=== PATIENT | female | born 1960 | race Caucasian/White ===

== ENCOUNTER 2017-03-23 10:45 | Emergency (ER) | payer OTHER ==
[~2017-03-23] VITALS: Ht 160 cm; Wt 60.0 kg
[~2017-03-23 10:45] MED LIST: CYAN1000P IM; FERR1TAB22 PO; OMEP20CA5 PO; RANI150C PO
[2017-03-23 10:48] VITALS: BP 172/75; PULSE 66; RESP 14; TEMP 98.1; O2SAT 98
[2017-03-23 11:25] LABS: AUTOMATED NEUTROPHIL # 3.4 TH/MM3 (1.8-7.7); BASOPHIL # 0.1 TH/MM3 (0-0.2); BASOPHIL % 0.8 % (0.0-2.0); EOSINOPHIL # 0.4 TH/MM3 (0-0.4); EOSINOPHIL % 5.8 % (0.0-4.0); HEMATOCRIT 40.3 % (35.0-46.0); HEMO FLAGS DIFF FINAL; LYMPHOCYTE # 2.3 TH/MM3 (1.0-4.8); MEAN CELL VOLUME 85.5 FL (80.0-100.0); MEAN CORPUSCULAR HGB CONC 32.7 % (32.0-36.0); MONO % 7.6 % (0.0-8.0); NEUT % 51.8 % (16.0-70.0); PLATELET COUNT 242 TH/MM3 (150-450); RED BLOOD COUNT 4.72 MIL/MM3 (4.00-5.30); RED CELL DISTRIBUTION WIDTH 13.1 % (11.6-17.2); WHITE BLOOD COUNT 6.7 TH/MM3 (4.0-11.0)
--- NOTE | 2017-03-23 11:26 | RADRPT ---
EXAM DATE/TIME: 03/23/2017 11:08 [facility] COMPARISON: No previous studies available for comparison. INDICATIONS : Burning in chest since last night, pain in middle of back, no shortness of breath MEDICAL HISTORY : None. SURGICAL HISTORY : None. ENCOUNTER: Initial ACUITY: 1 day PAIN SCORE: 6/10 LOCATION: Bilateral chest FINDINGS: PA and lateral views of the chest demonstrate the lungs to be symmetrically aerated without evidence of mass, infiltrate or effusion. The cardiomediastinal contours are unremarkable. Osseous structure s are intact. CONCLUSION: No acute disease. Gadiel Yan MD FACR on March 23, 2017 at 11:24 Board Certified Radiologist. This report was verified electronically.
[2017-03-23 11:39] LABS: ANION GAP 8 MEQ/L (5-15); BICARBONATE 29.1 MEQ/L (21.0-32.0); BLOOD UREA NITROGEN 11 MG/DL (7-18); CHLORIDE 103 MEQ/L (98-107); GLOMERULAR FILTRATION RATE 81 ML/MIN (>89); SODIUM (NA) 140 MEQ/L (136-145)
[2017-03-23 11:43] LABS: CREATINE KINASE 243 U/L (26-192)
--- NOTE | 2017-03-23 11:44 | EKG ---
Date Performed: 03/23/2017 Time Performed: 11:01:27 PTAGE: 57 years EKG: Sinus rhythm NORMAL ECG PREVIOUS TRACING : 08/17/2015 06.58 No significant change from previous tracing noted. DOCTOR: Chandler Mujica Interpretating Date/Time 03/23/2017 11:42:57
[2017-03-23 11:55] LABS: CKMB 2.4 NG/ML (0.5-3.6)
--- NOTE | 2017-03-23 12:57 | PD ---
HPI Chief Complaint: Chest Pain Time Seen by Provider: 12:28 Travel History International Travel<30 days: No Contact w/Intl Traveler<30days: No Traveled to known affect area: No History of Present Illness HPI 57-year-old female that presents to the ED for evaluation of chest pain. Per patient she's had burning sensation in her chest since 8:00 last night. She has a history of peptic ulcer disease since age 17 but denies any abdominal pain. Per patient she contact her PCP today who told her to come here to get evaluated for possible heart issues. She denies any shortness of breath. Per patient the pain is burning like almost like heartburn. She denies any shortness of breath. No history of heart disease in herself or anybody in the family. She denies any history of high cholesterol, diabetes, hypertension, smoking or alcohol abuse. She states that for the most part she is very healthy and exercises every day. She denies taking any aspirin or blood thinners. She states that she has not had any recent travel or takes hormones. She denies any bowel movement or urinary issues. No nausea or vomiting. She states that the discomfort is 7 out of 10 and is more burning. No pressure. Does not radiate. PFSH Past Medical History Cancer: No Cardiovascular Problems: No Diabetes: No Diminished Hearing: No Endocrine: No GERD: Yes Glaucoma: No Genitourinary: No Hepatitis: No Hiatal Hernia: No Hypertension: No Immune Disorder: No Musculoskeletal: Yes (RIGHT MIDDLE FINGER) Neurologic: No Psychiatric: No Reproductive: No Respiratory: No Thyroid Disease: No ?: Not Past Surgical History Abdominal Surgery: Yes (PARTIAL GASTRECTOMY-COLON RESECTION, LAP LEA, UMBILICAL HERNIA) AICD: No Body Medical Devices: NONE Cardiac Surgery: No Ear Surgery: No Endocrine Surgery: No Eye Surgery: No Genitourinary Surgery: No Gynecologic Surgery: Yes (LAPAROSCOPIC SX-ABLATION(ENDOMETRIOSIS)) Joint Replacement: No Oral Surgery: No Pacemaker: No Thoracic Surgery: No Other Surgery: Yes Social History Alcohol Use: No Tobacco Use: No Substance Use: No Allergies-Medications (Allergen,Severity, Reaction): Coded Allergies: nitrofurantoin (Unverified Allergy, Severe, HIVES,FEVER,SHAKING, 12/30/16) Reported Meds & Prescriptions Reported Meds & Active Scripts Active Reported Slow-Release Iron (Ferrous Sulfate Dried) 45 Mg Tab 135 Mg PO DAILY Zantac (Ranitidine HCl) 150 Mg Cap 150 PO DAILY Prilosec 20 mg (Omeprazole) 20 Mg Capcr 20 Mg PO DAILY Vitamin B12 (Cyanocobalamin) 1,000 Mcg/Ml Inj 1,000 Mcg IM MONTHLY Review of Systems Except as stated in HPI: all other systems reviewed are Neg Physical Exam Narrative GENERAL: SKIN: Warm and dry. HEAD: Atraumatic. Normocephalic. EYES: Pupils equal and round. No scleral icterus. No injection or drainage. ENT: No nasal bleeding or discharge. Mucous membranes pink and moist. Tongue is midline. No uvula deviation. NECK: Trachea midline. No JVD. CARDIOVASCULAR: Regular rate and rhythm. No murmurs, S3, S4. RESPIRATORY: No accessory muscle use. Clear to auscultation. Breath sounds equal bilaterally. GASTROINTESTINAL: Abdomen soft, non-tender, nondistended. Hepatic and splenic margins not palpable. MUSCULOSKELETAL: Extremities without clubbing, cyanosis, or edema. No obvious deformities. Full range of motion of the upper and lower extremities bilaterally. 2+ pulses bilaterally. NEUROLOGICAL: Awake and alert. No obvious cranial nerve deficits. Motor grossly within normal limits. Five out of 5 muscle strength in the arms and legs. Normal speech. PSYCHIATRIC: Appropriate mood and affect; insight and judgment normal. Data Data Last Documented VS Vital Signs Date Time Temp Pulse Resp B/P (MAP) Pulse Ox O2 Delivery O2 Flow Rate FiO2 03/23/17 10:48 98.1 66 14 172/75 (107) 98 Orders Orders Electrocardiogram (03/23/17 10:55) Complete Blood Count With Diff (03/23/17 10:55) Basic Metabolic Panel (Bmp) (03/23/17 10:55) Ckmb (Isoenzyme) Profile (03/23/17 10:55) Troponin I (03/23/17 10:55) Iv Access Insert/Monitor (03/23/17 10:55) Ecg Monitoring (03/23/17 10:55) Oxygen Administration (03/23/17 10:55) Oximetry (03/23/17 10:55) Chest, Pa & Lat (03/23/17 10:55) CKMB (03/23/17 11:02) CKMB% (03/23/17 11:02) Aspirin (Aspirin) (03/23/17 13:00) Ed Discharge Order (03/23/17 12:51) Labs Laboratory Tests Test 03/23/17 11:02 White Blood Count 6.7 TH/MM3 Red Blood Count 4.72 MIL/MM3 Hemoglobin 13.2 GM/DL Hematocrit 40.3 % Mean Corpuscular Volume 85.5 FL Mean Corpuscular Hemoglobin 28.0 PG Mean Corpuscular Hemoglobin Concent 32.7 % Red Cell Distribution Width 13.1 % Platelet Count 242 TH/MM3 Mean Platelet Volume 8.1 FL Neutrophils (%) (Auto) 51.8 % Lymphocytes (%) (Auto) 34.0 % Monocytes (%) (Auto) 7.6 % Eosinophils (%) (Auto) 5.8 % Basophils (%) (Auto) 0.8 % Neutrophils # (Auto) 3.4 TH/MM3 Lymphocytes # (Auto) 2.3 TH/MM3 Monocytes # (Auto) 0.5 TH/MM3 Eosinophils # (Auto) 0.4 TH/MM3 Basophils # (Auto) 0.1 TH/MM3 CBC Comment DIFF FINAL Differential Comment Blood Urea Nitrogen 11 MG/DL Creatinine 0.74 MG/DL Random Glucose 90 MG/DL Calcium Level 9.0 MG/DL Sodium Level 140 MEQ/L Potassium Level 4.0 MEQ/L Chloride Level 103 MEQ/L Carbon Dioxide Level 29.1 MEQ/L Anion Gap 8 MEQ/L Estimat Glomerular Filtration Rate 81 ML/MIN Total Creatine Kinase 243 U/L Creatine Kinase MB 2.4 NG/ML Creatine Kinase MB % 1.0 % Troponin I LESS THAN 0.02 NG/ML MDM Medical Decision Making Medical Screen Exam Complete: Yes Emergency Medical Condition: Yes Medical Record Reviewed: Yes Interpretation(s) CBC & BMP Diagram 03/23/17 11:02 Calcium Level 9.0 Troponin and CK-MB negative. EKG shows sinus rhythm with no sign of acute ischemia or arrhythmia read by me and attending. Last Impressions Chest X-Ray 03/23/17 1055 Signed Impressions: Service Date/Time: Thursday, March 23, 2017 11:08 - CONCLUSION: No acute disease. Gadiel Yan MD FACR Differential Diagnosis ACS versus chest pain versus a typical chest pain versus peptic ulcer disease versus GERD Narrative Course 66-year-old female that presents to the ED for evaluation of chest pain. Patient was properly examined and was found to have signs and symptoms of unclear etiology. Patient only has one risk factor towards her which is her age she is about 56. She has no risk factor otherwise. Denies any other medical issues. Labs and imaging were done at triage and showed no sign of acute disease. Troponin was negative. EKG show no sign of ischemic changes. At this time I did offer patient admission to the chest pain center. Did recommend that secondary to her age and she never having a stress test in the past. She understands reasons to having the stress test to better assess for cardiac disease. She declined this. She understands that would of this testing she can have severe illness including . She agrees with this. She will require follow-up with PCP.AMA: The risks of leaving against medical advice without further evaluation treatment were discussed with the patient. These risks include cardiac dysfunction, cardiac dysrhythmia, possible heart attack, possible stroke or . The patient indicated understanding of these risks and appeared to have the capacity to make this decision. She was told to follow with PCP these week. See ED worsening symptoms. Take a baby aspirin every day. Diagnosis Primary Impression: Atypical chest pain Patient Instructions: General Instructions Additional Instructions: Follow-up with PCP these week. See ED worsening symptoms. Take an aspirin every day. Med/Other Pt SpecificInfo: Prescription(s) given Disposition: 01 DISCHARGE HOME Condition: Stable Erik Posada Mar 23, 2017 12:56
[2017-03-23] MEDS ORDERED: ASPIRIN 325 MG TAB PO ONE (13:00)
== END 2017-03-23 13:15 | disposition home or self-care (01) ==
LOC: NEPC 10:45
DX: R07.89 Other chest pain (principal); K21.9 Gastro-esophageal reflux disease without esophagitis
CPT/HCPCS: 71020; 80048; 82550; 82552; 84484; 85025; 93005

== ENCOUNTER 2017-06-07 18:56 | Observation (INO) | payer OTHER ==
[2017-06-07] VITALS (8 sets, daily range): BP systolic 82–96; BP diastolic 43–62; PULSE 66–93; RESP 16–18; TEMP 97.8–98.8; O2SAT 100
[2017-06-07] MEDS ORDERED: SODIUM CHLOR 0.9% 1000 ML INJ 1,000 ML IV ONE (19:29)
[2017-06-07] MEDS ORDERED: ONDANSETRON HCL 4 MG/2 ML VIAL IVP ONE (19:30)
[2017-06-07] MEDS ORDERED: SODIUM CHLORIDE 0.9% FLUSH 10 ML FLUSH IVF PRN (19:30)
[2017-06-07] MEDS ORDERED: SODIUM CHLORID 0.9% 500 ML INJ 500 ML IV ONE ×3 (19:30→23:30)
--- NOTE | 2017-06-07 19:40 | PD ---
HPI Chief Complaint: GI Complaint Time Seen by Provider: 19:29 Travel History International Travel<30 days: No Contact w/Intl Traveler<30days: No Traveled to known affect area: No History of Present Illness HPI 57-year-old female presents to the emergency department by private transportation the care of her significant other and niece after a witnessed syncopal episode while having a diarrheal stool. Patient awakened this morning feeling well and around 9 AM started noticing some abdominal cramping diarrhea and subsequent nausea and vomiting. Patient has had at least 7 episodes of bilious emesis without hematemesis or coffee-ground emesis reported. Patient has had hourly or greater watery diarrhea stool since 9 AM. Patient had crampy abdominal pain. Patient's also had fever and chills. No report of respiratory illness cough congestion shortness of breath or chest pain. No reported dysuria frequency or urgency. Patient has been attempting to take Pedialyte without success today. Patient was in the bathroom and feeling very weak and reportedly fell off the toilet and had a period of loss of time for suspected fainting spell syncopal episode with loss of consciousness. He states that she was called by the patient to the bathroom where she found her on the floor and then assisted her back to the commode and while having a diarrheal stool had another episode of syncope. The patient subsequently came to spontaneously. No report of seizure activity. No report of known head injury. Patient does not report any head pain scalp pain neck pain back pain rib pain and pelvis pain or extremity injury. Family members were attempting to give patient Antonio but decided to bring her to the emergency room instead. Patient has history of peptic ulcer disease with partial gastrectomy in the past. 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 Almeida is her primary care provider. Patient does not take any NSAIDs or blood thinning agents. Patient denies any dietary indiscretion well water ingestion or foreign travel. No other family members with similar symptoms. Patient also status post umbilical herniorrhaphy cholecystectomy and uterine ablation for endometriosis. Patient was evaluated in March 2017 for chest pain and workup at that time revealed no acute process in the emergency department and patient declined observation admission for further evaluation. Patient denies personal history of known CAD hypertension dyslipidemia diabetes tobaccoism or premature onset heart disease. Again patient denies any chest pain, shortness of breath, pleuritic chest pain, hemoptysis, long distance travel, protracted bedrest, or surgical procedure, or clotting disorder. Patient states she's had no respiratory symptoms no cough no congestion no myalgias nor arthralgias so nonproductive cough no productive cough no wheezing no pleurisy no rib pain no chest wall pain and no swelling of the extremities and no personal history or family history of clotting disorder or connective tissue disorder. PFSH Past Medical History Narrative Medical Peptic ulcer disease, partial gastrectomy/partial colectomy, exploratory laparotomy, umbilical herniorrhaphy, uterine ablation, endometriosis, no tobacco use, nursing notes reviewed Cancer: No Cardiovascular Problems: No Diabetes: No Diminished Hearing: No Endocrine: No Gastrointestinal Disorders: Yes (GERD, HX BLEEDING ULCER REQUIRING SURGERY) GERD: Yes Glaucoma: No Genitourinary: No Hepatitis: No Hiatal Hernia: No Hypertension: No Immune Disorder: No Musculoskeletal: Yes (RIGHT MIDDLE FINGER) Neurologic: No Psychiatric: No Reproductive: No Respiratory: No Thyroid Disease: No ?: Not Past Surgical History Abdominal Surgery: Yes (PARTIAL GASTRECTOMY-COLON RESECTION, LAP LEA, UMBILICAL HERNIA) AICD: No Body Medical Devices: NONE Cardiac Surgery: No Ear Surgery: No Endocrine Surgery: No Eye Surgery: No Genitourinary Surgery: No Gynecologic Surgery: Yes (LAPAROSCOPIC SX-ABLATION(ENDOMETRIOSIS)) Joint Replacement: No Neurologic Surgery: No Oral Surgery: No Pacemaker: No Thoracic Surgery: No Other Surgery: Yes Social History Alcohol Use: No Tobacco Use: No Substance Use: No Allergies-Medications (Allergen,Severity, Reaction): Coded Allergies: nitrofurantoin (Verified Allergy, Severe, HIVES,FEVER,SHAKING, 06/07/17) Reported Meds & Prescriptions Reported Meds & Active Scripts Active Narrative Medication Occasional Carafate use Review of Systems Except as stated in HPI: all other systems reviewed are Neg General / Constitutional: Positive: Fever, Chills HENT: No: Sore Throat, Congestion Cardiovascular: No: Chest Pain or Discomfort Respiratory: No: Shortness of Breath Gastrointestinal: Positive: Nausea, Vomiting, Diarrhea, Abdominal Pain, No: Hematemesis, Hematochezia, Loss of Appetite Genitourinary: No: Urgency, Frequency, Dysuria Musculoskeletal: Positive: Myalgias, Arthralgias Skin: No Rash Neurologic: Positive: Weakness, Dizziness, Syncope, No: Focal Abnormalities, Coordination Problem Psychiatric: No: Anxiety Endocrine: No: Heat Intolerance Hematologic/Lymphatic: No: Easy Bruising Physical Exam Narrative GENERAL: Well-developed thin female appears mildly ill in no acute respiratory distress; GCS 15 SKIN: Warm and dry. HEAD: Atraumatic. Normocephalic. EYES: Pupils equal and round. No scleral icterus. No injection or drainage. ENT: No nasal bleeding or discharge. Mucous membranes pink and moist. NECK: Trachea midline. No JVD. No midline tenderness to direct palpation along the cervical spine no bony step-off. CARDIOVASCULAR: Regular rate and rhythm. RESPIRATORY: No accessory muscle use. Clear to auscultation. Breath sounds equal bilaterally. GASTROINTESTINAL: Abdomen soft, non-tender, nondistended. Hepatic and splenic margins not palpable. MUSCULOSKELETAL: Extremities without clubbing, cyanosis, or edema. No obvious deformities. NEUROLOGICAL: Awake and alert. GCS 15. No obvious cranial nerve deficits. Motor grossly within normal limits. Five out of 5 muscle strength in the arms and legs. Normal speech. PSYCHIATRIC: Appropriate mood and affect; insight and judgment normal. Data Data Last Documented VS Vital Signs Date Time Temp Pulse Resp B/P (MAP) Pulse Ox O2 Delivery O2 Flow Rate FiO2 06/07/17 21:55 78 16 82/43 (56) 100 06/07/17 20:51 Room Air 06/07/17 20:20 98.8 Orders Orders Electrocardiogram (06/07/17 19:29) Complete Blood Count With Diff (06/07/17 19:29) Comprehensive Metabolic Panel (06/07/17 19:29) Magnesium (Mg) (06/07/17 19:29) Ckmb (Isoenzyme) Profile (06/07/17 19:29) Troponin I (06/07/17 19:29) Act Partial Throm Time (Ptt) (06/07/17 19:29) Prothrombin Time / Inr (Pt) (06/07/17 19:29) Urinalysis - C+S If Indicated (06/07/17 19:29) Chest, Single Ap (06/07/17 19:29) Ct Brain W/O Iv Contrast(Rout) (06/07/17 19:29) Blood Glucose (06/07/17 19:29) Ecg Monitoring (06/07/17 19:29) Iv Access Insert/Monitor (06/07/17 19:29) Oximetry (06/07/17 19:29) Ondansetron Inj (Zofran Inj) (06/07/17 19:30) Sodium Chloride 0.9% Flush (Ns Flush) (06/07/17 19:30) Sodium Chlor 0.9% 1000 Ml Inj (Ns 1000 M (06/07/17 19:29) Lipase (06/07/17 19:29) Blood Culture (06/07/17 19:29) Sodium Chlorid 0.9% 500 Ml Inj (Ns 500 M (06/07/17 19:30) CKMB (06/07/17 19:35) CKMB% (06/07/17 19:35) Sodium Chlorid 0.9% 500 Ml Inj (Ns 500 M (06/07/17 21:45) Lactic Acid (06/07/17 21:36) Labs Laboratory Tests Test 06/07/17 19:35 06/07/17 20:00 06/07/17 21:25 06/07/17 21:50 Blood Urea Nitrogen 18 MG/DL Creatinine 0.93 MG/DL Random Glucose 136 MG/DL Total Protein 7.6 GM/DL Albumin 3.4 GM/DL Calcium Level 7.8 MG/DL Magnesium Level 1.9 MG/DL Alkaline Phosphatase 72 U/L Aspartate Amino Transf (AST/SGOT) 29 U/L Alanine Aminotransferase (ALT/SGPT) 21 U/L Total Bilirubin 0.8 MG/DL Sodium Level 134 MEQ/L Potassium Level 3.9 MEQ/L Chloride Level 102 MEQ/L Carbon Dioxide Level 23.7 MEQ/L Anion Gap 8 MEQ/L Estimat Glomerular Filtration Rate 62 ML/MIN Total Creatine Kinase 174 U/L Creatine Kinase MB 0.9 NG/ML Troponin I LESS THAN 0.02 NG/ML Lipase 192 U/L White Blood Count 9.9 TH/MM3 Red Blood Count 5.00 MIL/MM3 Hemoglobin 12.9 GM/DL Hematocrit 40.5 % Mean Corpuscular Volume 80.9 FL Mean Corpuscular Hemoglobin 25.7 PG Mean Corpuscular Hemoglobin Concent 31.8 % Red Cell Distribution Width 13.6 % Platelet Count 300 TH/MM3 Mean Platelet Volume 7.7 FL Neutrophils (%) (Auto) 91.3 % Lymphocytes (%) (Auto) 4.1 % Monocytes (%) (Auto) 2.6 % Eosinophils (%) (Auto) 0.7 % Basophils (%) (Auto) 1.3 % Neutrophils # (Auto) 9.0 TH/MM3 Lymphocytes # (Auto) 0.4 TH/MM3 Monocytes # (Auto) 0.3 TH/MM3 Eosinophils # (Auto) 0.1 TH/MM3 Basophils # (Auto) 0.1 TH/MM3 CBC Comment DIFF FINAL Differential Comment Prothrombin Time 10.7 SEC Prothromb Time International Ratio 1.1 RATIO Activated Partial Thromboplast Time 23.6 SEC Lactic Acid Level 0.6 mmol/L MDM Medical Decision Making Medical Screen Exam Complete: Yes Emergency Medical Condition: Yes Medical Record Reviewed: Yes Interpretation(s) EKG: Normal sinus rhythm rate [address] elevation injury pattern or ectopy noted Troponin I less than 0.02, not elevated Last Impressions Chest X-Ray 06/07/[id number] Signed Impressions: Service Date/Time: Wednesday, June 07, 2017 19:55 - CONCLUSION: 1. No evidence for infiltrate. 2. Small nodule right lower lobe. Followup outpatient CT chest in 3 months. Calvin Jacobo MD CBC & BMP Diagram 06/07/17 19:35 Total Protein 7.6, Albumin 3.4, Calcium Level 7.8 L, Magnesium Level 1.9, Alkaline Phosphatase 72, Aspartate Amino Transf (AST/SGOT) 29, Alanine Aminotransferase (ALT/SGPT) 21, Total Bilirubin 0.8 06/07/17 20:00 Vital Signs Date Time Temp Pulse Resp B/P (MAP) Pulse Ox O2 Delivery O2 Flow Rate FiO2 06/07/17 20:51 66 16 91/62 (72) 100 Room Air 06/07/17 20:20 98.8 91 16 95/62 (73) 100 06/07/17 20:00 89 16 82/53 (63) 100 Room Air 06/07/17 19:09 97.8 93 18 100 Differential Diagnosis Gastroenteritis, marked dehydration, arrhythmia, electronic disturbance, ACS, MA , minor CHI, ICH, TIA, seizure, sepsis, UTI, PE Narrative Course Patient placed on monitoring specialist with continuous pulse oximetry; IV access obtained patient given a bolus of normal saline 1 L wide open @ 22:35 patient reports that she feels well wanting a trail of oral hydration Jayne Armstrong MD Jun 07, 2017 19:40
[2017-06-07 19:58] LABS: CHLORIDE 102 MEQ/L (98-107); SODIUM (NA) 134 MEQ/L (136-145)
[2017-06-07 20:02] LABS: ALBUMIN 3.4 GM/DL (3.4-5.0); BICARBONATE 23.7 MEQ/L (21.0-32.0); BLOOD UREA NITROGEN 18 MG/DL (7-18); CALCIUM 7.8 MG/DL (8.5-10.1); GLUCOSE,RANDOM 136 MG/DL (74-106); LIPASE 192 U/L (73-393); MAGNESIUM 1.9 MG/DL (1.5-2.5)
[2017-06-07 20:05] LABS: ALT (GPT) 21 U/L (10-53); AST (GOT) 29 U/L (15-37); CREATININE 0.93 MG/DL (0.50-1.00); GLOMERULAR FILTRATION RATE 62 ML/MIN (>89)
[2017-06-07 20:06] LABS: TOTAL BILIRUBIN ADULT 0.8 MG/DL (0.2-1.0); TOTAL PROTEIN 7.6 GM/DL (6.4-8.2)
--- NOTE | 2017-06-07 20:06 | RADRPT ---
EXAM DATE/TIME: 06/07/2017 19:55 [facility] COMPARISON: No previous studies available for comparison. INDICATIONS : Shortness of breath. MEDICAL HISTORY : None. SURGICAL HISTORY : None. ENCOUNTER: Initial ACUITY: 1 day PAIN SCORE: 0/10 LOCATION: Bilateral chest FINDINGS: A single view of the chest demonstrates the lungs to be symmetrically aerated without evidence of mas s, infiltrate or effusion. Small nodule right lower lobe. The cardiomediastinal contours are unremar kable. Osseous structures are intact. CONCLUSION: 1. No evidence for infiltrate. 2. Small nodule right lower lobe. Followup outpatient CT chest in 3 months. Calvin Jacobo MD on June 07, 2017 at 20:03 Board Certified Radiologist. This report was verified electronically.
[2017-06-07 20:08] LABS: ALKALINE PHOSPHATASE 72 U/L (45-117)
[2017-06-07 20:10] LABS: TROPONIN I LESS THAN 0.02 NG/ML (0.02-0.05)
[2017-06-07 20:13] LABS: BASOPHIL # 0.1 TH/MM3 (0-0.2); BASOPHIL % 1.3 % (0.0-2.0); EOSINOPHIL # 0.1 TH/MM3 (0-0.4); EOSINOPHIL % 0.7 % (0.0-4.0); HEMATOCRIT 40.5 % (35.0-46.0); HEMOGLOBIN 12.9 GM/DL (11.6-15.3); LYMPH % 4.1 % (9.0-44.0); LYMPHOCYTE # 0.4 TH/MM3 (1.0-4.8); MEAN CELL VOLUME 80.9 FL (80.0-100.0); MEAN CORPUSCULAR HEMOGLOBIN 25.7 PG (27.0-34.0); MEAN CORPUSCULAR HGB CONC 31.8 % (32.0-36.0); MEAN PLATELET VOLUME 7.7 FL (7.0-11.0); MONO % 2.6 % (0.0-8.0); MONOCYTE # 0.3 TH/MM3 (0-0.9); NEUT % 91.3 % (16.0-70.0); PLATELET COUNT 300 TH/MM3 (150-450); RED CELL DISTRIBUTION WIDTH 13.6 % (11.6-17.2); WHITE BLOOD COUNT 9.9 TH/MM3 (4.0-11.0)
[2017-06-07 21:55] LABS: INTERNATIONAL NORMALIZED RATIO 1.1 RATIO; PROTHROMBIN TIME - PATIENT 10.7 SEC (9.8-11.6)
--- NOTE | 2017-06-07 22:29 | RADRPT ---
EXAM DATE/TIME: 06/07/2017 22:09 [facility] COMPARISON: No previous studies available for comparison. INDICATIONS : Dizziness. Nausea. Vomiting. Diarrhea. RADIATION DOSE: 55.78 CTDIvol (mGy) ; Patient motion MEDICAL HISTORY : None SURGICAL HISTORY : None. ENCOUNTER: Initial ACUITY: 1 day PAIN SCALE: 0/10 LOCATION: cranial TECHNIQUE: Multiple contiguous axial images were obtained of the head. Using automated exposure control and adj ustment of the mA and/or kV according to patient size, radiation dose was kept as low as reasonably a chievable to obtain optimal diagnostic quality images. DICOM format image data is available electro nically for review and comparison. FINDINGS: CEREBRUM: The ventricles are normal for age. No evidence of midline shift, mass lesion, hemorrhage or acute in farction. No extra-axial fluid collections are seen. POSTERIOR FOSSA: The cerebellum and brainstem are intact. The 4th ventricle is midline. The cerebellopontine angle i s unremarkable. EXTRACRANIAL: The visualized portion of the orbits is intact. SKULL: The calvaria is intact. No evidence of skull fracture. CONCLUSION: No acute intracranial disease. Calvin Jacobo MD on June 07, 2017 at 22:26 Board Certified Radiologist. This report was verified electronically.
[2017-06-07 23:11] LABS: BILIRUBIN, URINE NEG (NEG); BLOOD, URINE NEG (NEG); GLUCOSE,URINE NEG (NEG); KETONE, URINE 40 mg/dL (NEG); NITRITE,URINE NEG (NEG); URINE LEUKOCYTE ESTERASE SMALL (NEG)
[2017-06-07 23:32] LABS: URINE COLOR YELLOW (YELLW/STRAW)
[2017-06-07 23:33] LABS: BACTERIA, URINE MANY /hpf; MUCUS URINE OCC /lpf (OCC)
[2017-06-07 23:34] LABS: SQUAMOUS EPITHELIAL CELL URINE 0-5 /hpf (0-5)
[2017-06-08] VITALS (9 sets, daily range): BP systolic 83–99; BP diastolic 43–58; PULSE 86–97; RESP 12–18; TEMP 98.3–99.2; O2SAT 96–100
[2017-06-08] MEDS ORDERED: CYAN100017
[2017-06-08] MEDS ORDERED: OS-CTAB3 PO
[2017-06-08] MEDS ORDERED: FERR325T18 PO
[2017-06-08] MEDS ORDERED: cefTRIAXone INJ 1,000 MG in SODIUM CHLORIDE 0.9% INJ 100 ML IV ONE (00:15)
[2017-06-08] MEDS ORDERED: ONDANSETRON HCL 4 MG/2 ML VIAL IV PUSH PRN (00:30)
[2017-06-08] MEDS: NS + KCL 20 MEQ INJ 1,000 ML IV SCH ×2 (02:16→11:49)
[2017-06-08 07:36] LABS: BICARBONATE 23.7 MEQ/L (21.0-32.0); CREATININE 0.56 MG/DL (0.50-1.00); TOTAL BILIRUBIN ADULT 0.5 MG/DL (0.2-1.0)
[2017-06-08 07:52] LABS: ALBUMIN 2.4 GM/DL (3.4-5.0); CALCIUM 6.2 MG/DL (8.5-10.1); TOTAL PROTEIN 5.6 GM/DL (6.4-8.2)
[2017-06-08 07:53] LABS: CALCIUM-PROTEIN CORRECTED 6.9 MG/DL (8.5-10.1)
--- NOTE | 2017-06-08 09:10 | HHI.HP ---
HPI Service [facility] Hospitalists Primary Care Physician Agus Mena D.O. Admission Diagnosis UTI; syncope w/ dehyration Chief Complaint: diarrhea, syncopal episodes x2 Travel History International Travel<30 Days: No Contact w/Intl Traveler <30 Da: No Traveled to Known Affected Are: No History of Present Illness 57-year-old relatively healthy female presents to the emergency department by private transportation the care of her significant other and niece after a witnessed syncopal episode while having a diarrheal stool. Patient awakened this morning feeling well and around 9 AM started noticing some abdominal cramping diarrhea and subsequent nausea and vomiting. Patient has had at least 7 episodes of bilious emesis without hematemesis or coffee-ground emesis reported. The vomiting subsided but diarrhea ensued. Patient had frequent loose, watery BMs prior to ER visit yesterday, but not since until one this AM after she at breakfast. Patient had crampy abdominal pain. Patient's also had fever and chills. No report of respiratory illness cough congestion shortness of breath or chest pain. No reported dysuria frequency or urgency. Patient had been attempting to take Pedialyte without success on day of admit. Patient was in the bathroom and feeling very weak and reportedly fell off the toilet and had a period of loss of time for suspected fainting spell syncopal episode with loss of consciousness. He states that she was called by the patient to the bathroom where she found her on the floor and then assisted her back to the commode and while having a diarrheal stool had another episode of syncope. The patient subsequently regained consciousness spontaneously. No report of seizure activity. No report of known head injury. Patient does not report any head pain scalp pain neck pain back pain rib pain and pelvis pain or extremity injury. Family members were attempting to give patient Zofran but decided to bring her to the emergency room instead. Patient has history of peptic ulcer disease with partial gastrectomy in the past. Patient does not take any NSAIDs or blood thinning agents. Patient denies any dietary indiscretion well water ingestion or foreign travel. No recent antibiotic use. No other family members with similar symptoms. Patient was evaluated in March 2017 for chest pain and workup at that time revealed no acute process in the emergency department and patient declined observation admission for further evaluation. Patient denies personal history of known CAD hypertension dyslipidemia diabetes tobaccoism or premature onset heart disease. Patient states she's had no respiratory symptoms no cough no congestion no myalgias nor arthralgias so nonproductive cough no productive cough no wheezing no pleurisy no rib pain no chest wall pain and no swelling of the extremities and no personal history or family history of clotting disorder or connective tissue disorder. Review of Systems Constitutional: COMPLAINS OF: Fatigue, Dizziness Eyes: DENIES: Blurred vision, Diplopia, Eye inflammation, Eye pain, Vision loss , Photosensitivity, Double Vision Ears, nose, mouth, throat: DENIES: Tinnitus, Hearing loss, Vertigo, Nasal discharge, Oral lesions, Throat pain, Hoarseness, Ear Pain, Running Nose, Epistaxis, Sinus Pain, Toothache, Odynophagia Respiratory: DENIES: Apneas, Cough, Snoring, Wheezing, Hemoptysis, Sputum production, Shortness of breath Cardiovascular: DENIES: Chest pain, Palpitations, Syncope, Dyspnea on Exertion , PND, Lower Extremity Edema, Orthopnea, Claudication Gastrointestinal: COMPLAINS OF: Abdominal pain, Diarrhea, Nausea, Vomiting, DENIES: Black stools, Bloody stools, BRB per rectum, Constipation, GERD, Reflux , Difficulty Swallowing, Anorexia, See HPI Musculoskeletal: DENIES: Joint pain, Muscle aches, Stiffness, Joint Swelling, Back pain, Neck pain Integumentary: DENIES: Abnormal pigmentation, Pruritus, Rash, Nail changes, Breast masses, Breast skin changes, Nipple discharge Hematologic/lymphatic: DENIES: Bruising, Lymphadenopathy Immunologic/allergic: DENIES: Eczema, Urticaria Neurologic: DENIES: Abnormal gait, Headache, Localized weakness, Paresthesias, Seizures, Speech Problems, Tremor, Poor Balance Psychiatric: DENIES: Anxiety, Confusion, Mood changes, Depression, Hallucinations, Agitation, Suicidal Ideation, Homicidal Ideation, Delusions, History of Bipolar, History of Schizophrenia Past Family Social History Past Medical History GERD B12 deficiency Psoriasis History of peptic ulcer disease Past Surgical History Left cholecystectomy Partial gastrectomy with Billroth II procedure 1987 Umbilical hernia repair 2010 Vagotomy Laparotomy for endometriosis. Reported Medications B12 1000 g IM monthly Carafate 1 g twice daily Allergies: Coded Allergies: nitrofurantoin (Verified Allergy, Severe, HIVES,FEVER,SHAKING, 06/07/17) Family History No coronary artery disease but her father required a pacemaker at age 40 No seizure disorders or recurrent syncopal disorders. Social History Denies tobacco alcohol or illicit drug use Moved here from [place] but has a fianc [employer]s [employer] Physical Exam Vital Signs Vital Signs Date Time Temp Pulse Resp B/P (MAP) Pulse Ox O2 Delivery O2 Flow Rate FiO2 06/08/17 07:09 91 06/08/17 04:00 98.5 91 16 99/56 (70) 98 06/08/17 02:28 89 06/08/17 01:59 98.7 90 18 90/58 (69) 98 06/08/17 01:45 88 16 83/47 (59) 100 06/08/17 00:35 89 16 87/43 (58) 100 Room Air 06/07/17 23:15 92 16 91/45 (60) 100 Room Air 06/07/17 23:02 99 16 89/45 (60) 98 16 94/53 (67) 98 96/60 (72) 06/07/17 22:43 70 16 83/45 (58) 06/07/17 21:55 78 16 82/43 (56) 100 06/07/17 20:51 66 16 91/62 (72) 100 Room Air 06/07/17 20:20 98.8 91 16 95/62 (73) 100 06/07/17 20:00 89 16 82/53 (63) 100 Room Air 06/07/17 19:09 97.8 93 18 100 Physical Exam GENERAL: This is a well-nourished, well-developed patient, in no apparent distress. SKIN: No rashes, ecchymoses or lesions. Cool and dry. HEAD: Atraumatic. Normocephalic. No temporal or scalp tenderness. EYES: Pupils equal round and reactive. Extraocular motions intact. No scleral icterus. No injection or drainage. ENT: Nose without bleeding, purulent drainage or septal hematoma. Airway patent. NECK: Trachea midline. No JVD or lymphadenopathy. Supple, nontender, no meningeal signs. CARDIOVASCULAR: Regular rate and rhythm without murmurs, gallops, or rubs. RESPIRATORY: Clear to auscultation. Breath sounds equal bilaterally. No wheezes , rales, or rhonchi. GASTROINTESTINAL: Abdomen soft, non-tender, nondistended. No hepato-splenomegaly , or palpable masses. No guarding. Bowel sounds slightly hyperactive. MUSCULOSKELETAL: Extremities without clubbing, cyanosis, or edema. No joint tenderness, effusion, or edema noted. No calf tenderness. NEUROLOGICAL: Awake and alert. Cranial nerves II through XII intact. Motor and sensory grossly within normal limits. Five out of 5 muscle strength in all muscle groups. Normal speech. Laboratory Laboratory Tests Test 06/07/17 19:35 06/07/17 20:00 06/07/17 21:25 06/07/17 21:50 Blood Urea Nitrogen 18 Creatinine 0.93 Random Glucose 136 Total Protein 7.6 Albumin 3.4 Calcium Level 7.8 Magnesium Level 1.9 Alkaline Phosphatase 72 Aspartate Amino Transf (AST/SGOT) 29 Alanine Aminotransferase (ALT/SGPT) 21 Total Bilirubin 0.8 Sodium Level 134 Potassium Level 3.9 Chloride Level 102 Carbon Dioxide Level 23.7 Anion Gap 8 Estimat Glomerular Filtration Rate 62 Total Creatine Kinase 174 Creatine Kinase MB 0.9 Troponin I LESS THAN 0.02 Lipase 192 White Blood Count 9.9 Red Blood Count 5.00 Hemoglobin 12.9 Hematocrit 40.5 Mean Corpuscular Volume 80.9 Mean Corpuscular Hemoglobin 25.7 Mean Corpuscular Hemoglobin Concent 31.8 Red Cell Distribution Width 13.6 Platelet Count 300 Mean Platelet Volume 7.7 Neutrophils (%) (Auto) 91.3 Lymphocytes (%) (Auto) 4.1 Monocytes (%) (Auto) 2.6 Eosinophils (%) (Auto) 0.7 Basophils (%) (Auto) 1.3 Neutrophils # (Auto) 9.0 Lymphocytes # (Auto) 0.4 Monocytes # (Auto) 0.3 Eosinophils # (Auto) 0.1 Basophils # (Auto) 0.1 CBC Comment DIFF FINAL Differential Comment Prothrombin Time 10.7 Prothromb Time International Ratio 1.1 Activated Partial Thromboplast Time 23.6 Lactic Acid Level 0.6 Test 06/07/17 23:00 06/08/17 05:25 Urine Color YELLOW Urine Turbidity SLIGHT Urine pH 6.0 Urine Specific [place] 1.021 Urine Protein NEG Urine Glucose (UA) NEG Urine Ketones 40 Urine Occult Blood NEG Urine Nitrite NEG Urine Bilirubin NEG Urine Leukocyte Esterase SMALL Urine WBC 9-14 Urine Squamous Epithelial Cells 0-5 Urine Bacteria MANY Urine Mucus OCC Microscopic Urinalysis Comment CULTURE INDICATED Blood Urea Nitrogen 9 Creatinine 0.56 Random Glucose 103 Total Protein 5.6 Albumin 2.4 Calcium Level 6.2 Alkaline Phosphatase 52 Aspartate Amino Transf (AST/SGOT) 18 Alanine Aminotransferase (ALT/SGPT) 14 Total Bilirubin 0.5 Sodium Level 142 Potassium Level 3.4 Chloride Level 112 Carbon Dioxide Level 23.7 Anion Gap 6 Estimat Glomerular Filtration Rate 112 Protein Corrected Calcium 6.9 Thyroid Stimulating Hormone 3rd Gen 0.319 Date/Time Source Procedure Growth Status 06/07/17 20:00 Blood Peripheral Aerobic Blood Culture Pending Received 06/07/17 20:00 Blood Peripheral Anaerobic Blood Culture Pending Received 06/07/17 23:00 Urine Clean Catch Urine Culture Pending Received Result Diagram: 06/07/17199906/08/17 0525 Imaging Last [address] [id number]/07/[id number] Signed Impressions: Service Date/Time: Wednesday, June 07, 2017 22:09 - CONCLUSION: No acute intracranial disease. Calvin Jacobo MD Chest X-Ray [id number]/07/[id number] Signed Impressions: Service Date/Time: Wednesday, June 07, 2017 19:55 - CONCLUSION: 1. No evidence for infiltrate. 2. Small nodule right lower lobe. Followup outpatient CT chest in 3 months. MD Anila Head VTE Risk Assessment Caprini VTE Risk Assessment: No/Low Risk (score <= 1) Caprini Risk Assessment Model Point Value = 1 Point Value = 2 Point Value = 3 Point Value = 5 Age 41-60 Minor surgery BMI > 25 kg/m2 Swollen legs Varicose veins or History of unexplained or recurrent spontaneous Oral contraceptives or hormone replacement Sepsis (< 1 month) Serious lung disease, including pneumonia (< 1 month) Abnormal pulmonary function Acute myocardial infarction Congestive heart failure (< 1 month) History of inflammatory bowel disease Medical patient at bed rest Age 61-74 Arthroscopic surgery Major open surgery (> 45 min) Laparoscopic surgery (> 45 min) Malignancy Confined to bed (> 72 hours) Immobilizing plaster cast Central venous access Age >= 75 History of VTE Family history of VTE Factor V Leiden Prothrombin [id number] Lupus anticoagulant Anticardiolipin antibodies Elevated serum homocysteine Heparin-induced thrombocytopenia Other congenital or acquired thrombophilia Stroke (< 1 month) Elective arthroplasty Hip, pelvis, or leg fracture Acute spinal cord injury (< 1 month) Prophylaxis Regimen Total Risk Factor Score Risk Level Prophylaxis Regimen 0-1 Low Early ambulation 2 Moderate Order ONE of the following: *Sequential Compression Device (SCD) *Heparin 5000 units SQ BID 3-4 Higher Order ONE of the following medications: *Heparin 5000 units SQ TID *Enoxaparin/Lovenox 40 mg SQ daily (WT < 150 kg, CrCl > 30 mL/min) *Enoxaparin/Lovenox 30 mg SQ daily (WT < 150 kg, CrCl > 10-29 mL/min) *Enoxaparin/Lovenox 30 mg SQ BID (WT < 150 kg, CrCl > 30 mL/min) AND/OR *Sequential Compression Device (SCD) 5 or more Highest Order ONE of the following medications: *Heparin 5000 units SQ TID (Preferred with Epidurals) *Enoxaparin/Lovenox 40 mg SQ daily (WT < 150 kg, CrCl > 30 mL/min) *Enoxaparin/Lovenox 30 mg SQ daily (WT < 150 kg, CrCl > 10-29 mL/min) *Enoxaparin/Lovenox 30 mg SQ BID (WT < 150 kg, CrCl > 30 mL/min) AND *Sequential Compression Device (SCD) Assessment and Plan Problem List: (1) Dehydration ICD Codes: E86.0 - Dehydration Status: Acute Plan: Much improved after IV fluids. Her blood pressure is a bit low but this is near her baseline which is usually systolically in the 90s to low 100s. She had another episode of diarrhea this morning after eating breakfast. We'll continue to monitor and see how she does with lunch. Encouraged bland diet. (2) Gastroenteritis ICD Codes: K52.9 - Noninfective gastroenteritis and colitis, unspecified Status: Acute Plan: As above. Clinically improved. (3) Lung nodule ICD Codes: R91.1 - Solitary pulmonary nodule Status: Acute Plan: Outpatient follow-up. Code Status Full Discussed Condition With Patient, her niece and ER provider Anselmo Escudero MD PhD Jun 08, 2017 09:10
[2017-06-08] MEDS ORDERED: SUCRALFATE 1 GM/10 ML CUP PO SCH (10:00)
[2017-06-08] MEDS ORDERED: CALCIUM GLUCONATE 10% 1 GM/10 ML VIAL IV PUSH ONE (10:00)
[2017-06-08] MEDS ORDERED: POTASSIUM CHLORIDE 10 MEQ CONTROLLED RELEASE TAB PO ONE (10:00)
[2017-06-08] MEDS ORDERED: CALCIUM GLUCONATE INJ 1 GM in SODIUM CHLORIDE 0.9% INJ 100 ML IV ONE (11:00)
--- NOTE | 2017-06-08 16:17 | HHI.PR ---
Addendum to Inpatient Note Addendum Reason: Additional Documentation Additional Information Spoke with pt. She is doing well. She had turkey sandwich for lunch and no subsequent diarrhea or n/v. She has been ambulating in room w/o difficulty and has had good UOP. She already has appt AM with Dr Mena. She will observe low fat, bland diet and stay hydrated. Anselmo Escudero MD PhD Jun 08, 2017 16:17
[2017-06-08] MEDS ORDERED: BACT800T5 PO (16:21)
[2017-06-08] MEDS ORDERED: SUCR1S PO (16:21)
--- NOTE | 2017-06-08 19:41 | EKG ---
Date Performed: 06/07/2017 Time Performed: 20:53:49 PTAGE: 57 years EKG: Sinus rhythm POSSIBLE LEFT ATRIAL ENLARGEMENT BORDERLINE ECG PREVIOUS TRACING : 03/23/2017 11.01 Since previous tracing, no significant change noted DOCTOR: Teressa Floyd Interpretating Date/Time 06/08/2017 19:39:04
[2017-06-08] MEDS ORDERED: cefTRIAXone INJ 1,000 MG in SODIUM CHLORIDE 0.9% INJ 100 ML IV SCH (23:00)
== END 2017-06-08 17:01 | disposition home or self-care (01) ==
LOC: PHED 18:56 → PHEDA 06-08 00:10 → PH3A 06-08 01:47
PROVIDERS: ADMIT Family Medicine; ATTEND Family Medicine
DX: E86.0 Dehydration (principal); K52.9 Noninfective gastroenteritis and colitis, unspecified; R91.1 Solitary pulmonary nodule; R11.14 Bilious vomiting; W18.11XA Fall from or off toilet without subsequent striking against object, initial encounter; Z90.3 Acquired absence of stomach [part of]; Z87.11 Personal history of peptic ulcer disease; K21.9 Gastro-esophageal reflux disease without esophagitis; N39.0 Urinary tract infection, site not specified; B96.1 Klebsiella pneumoniae [K. pneumoniae] as the cause of diseases classified elsewhere; R94.31 Abnormal electrocardiogram [ECG] [EKG]
CPT/HCPCS: 70450; 71045; 80053; 81001; 82550; 82552; 83605; 83690; 83735; 84443; 84484; 85025; 85610; 85730; 87040; 87077; 87086; 87186; 93005; 96361; 96365; 96366; 96375; 99285; G0378; J0610; J0696; J2405; J3480; J7030; J7040

== ENCOUNTER → 2017-08-27 | Outpatient (CLI) | payer OTHER ==
[~2017-08-27] MED LIST changes: +BACT800T5 PO; +CYAN100017; -CYAN1000P IM; -FERR1TAB22 PO; +FERR325T18 PO; -OMEP20CA5 PO; +OS-CTAB3 PO; -RANI150C PO; +SUCR1S PO
--- NOTE | 2017-08-28 09:25 | RSPPFT ---
DATE OF PROCEDURE: 08/27/17 COMMENTS: Spirometry shows FVC of 3.0 at 102% of predicted, FEV1 of 1.9 at 82%, FEV1/FVC ratio is decreased. Flow is decreased at FEF 25, FEF 50, FEF 75 and FEF 25-75. There is no response after bronchodilator treatment. Lung volumes show residual volume is increased. TLC is normal. Diffusion capacity is normal. Flow volume loop indicates an obstructive pattern. IMPRESSION: 1. Mild obstructive lung disease. 2. No response after bronchodilator treatment. 3. Lung volumes show mild hyperinflation. 4. Normal diffusion capacity.
== END ==
LOC: PHRSP 07:21
PROVIDERS: ATTEND Internal Medicine Cardiovascular Disease
DX: R06.02 Shortness of breath (principal)
CPT/HCPCS: 94060; 94726; 94729